=== PATIENT | female | born 1990 | race Caucasian/White ===

== ENCOUNTER 2016-09-26 07:49 | Emergency (ER) | payer OTHER ==
[~2016-09-26] VITALS: Ht 157.5 cm; Wt 57.0 kg
[2016-09-26] MEDS ORDERED: JUNEL FE 1.5-31 EACH PO (08:34)
[2016-09-26 08:41] LABS: ADD MIUA? YES; BILIRUBIN NEGATIVE; BLOOD SMALL; COLOR YELLOW ((YELLOW)); GLUCOSE (STRIP) NEGATIVE; KETONES NEGATIVE; LEUKOCYTES MODERATE; NITRITE NEGATIVE; PH, URINE 6.5 (5-8); PROTEIN (STRIP) 30; SPECIFIC GRAVITY 1.019 (1.000-1.030); UROBILINOGEN 0.2 MG/DL (0.2-1.0)
[2016-09-26 09:04] LABS: BACTERIA 1+; CASTS NONE SEEN /LPF; CRYSTALS NONE SEEN; EPITHELIAL CELLS 1+; MUCUS 1+; WHITE BLOOD CELLS 40-50 /HPF (0-5)
[2016-09-26 09:31] LABS: EOSINOPHIL (%) 0.5 % (0-5); EOSINOPHIL COUNT 0.1 K/uL (0-0.3); HEMATOCRIT 38.2 % (36.0-46.0); IMMATURE GRANULOCYTE (%) 0.2 % (0.0-0.7); IMMATURE GRANULOCYTE COUNT 0.2 K/uL; LYMPHOCYTE COUNT 1.1 K/uL (1.0-2.8); MCH 29.7 PG (29.0-34.0); MCHC 34.6 G/DL (30.0-36.0); MCV 85.8 FL (83-99); MEAN PLAT.VOLUME 10.3 uM^3 (9.5-12.4); MONOCYTE (%) 4.5 % (3-12); MONOCYTE COUNT 0.6 K/uL (0-0.8); NEUTROPHIL COUNT 10.5 K/uL (1.8-6.4); PLATELET COUNT 231 K/uL (156-360); RBC DIS.WIDTH-CV 12.1 % (11.8-14.6); RBC DIS.WIDTH-SD 36.9 % (39-53); RED BLOOD COUNT 4.45 M/uL (3.80-5.20); WHITE BLOOD COUNT 12.2 K/uL (4.1-10.2)
[2016-09-26 09:43] LABS: CHLORIDE 108 mEq/L (99-109); POTASSIUM 3.8 mEq/L (3.7-5.4); SODIUM 139 mEq/L (136-147)
[2016-09-26 09:45] LABS: GLUCOSE 82 mg/dL (70-99)
[2016-09-26 09:46] LABS: ANION GAP 10 MEQ/L (2-14)
[2016-09-26 09:48] LABS: GFR ESTIMATE (CALCULATED) > 59 mL/min/
[2016-09-26 09:49] LABS: UREA NITROGEN (BUN) 9 mg/dL (9-23)
[2016-09-26 09:58] LABS: QUANTITATIVE HCG < 4.0 MIU/ML
[2016-09-26 12:29] VITALS: BP 135/86
== END 2016-09-26 12:30 | disposition home or self-care (01) ==
LOC: EME 07:49
PROVIDERS: Physician Assistant
DX: N23 Unspecified renal colic (principal); R31.9 Hematuria, unspecified; R30.9 Painful micturition, unspecified; R35.0 Frequency of micturition; R39.15 Urgency of urination
CPT/HCPCS: 74176; 80048; 81003; 84702; 85025; 99281; 99285